=== PATIENT | male | born 1950 | race Caucasian/White ===

== ENCOUNTER → 2017-07-07 | Outpatient (CLI) | payer MEDICARE, BC ==
--- NOTE | 2017-07-12 10:06 | P.ARTDOP ---
Arterial Doppler LOWER EXTREMITY ARTERIAL DOPPLER: DATE OF SERVICE: 07/07/2017 Reason for study: Claudication. Doppler waveforms: Multiphasic bilaterally throughout. Pulse volume recording: Normal configuration. Pressure gradients: None. Ankle-brachial indices: Greater than 1 bilaterally. Toe pressures: 99 on the right, 115 on the left Impression: Normal study.
== END | disposition home or self-care (01) ==
LOC: RADUSWWP 08:53
PROVIDERS: ATTEND Family Medicine
DX: I73.9 Peripheral vascular disease, unspecified (principal)
CPT/HCPCS: 93923

== ENCOUNTER 2018-01-24 19:41 | Emergency (ER) | payer MEDICARE, BC ==
[2018-01-24 19:47] VITALS: PULSE 98; RESP 18; TEMP 99.4
[2018-01-24 20:16] VITALS: BP 171/85
[2018-01-24 20:39] LABS: Basophils # (A) 0.1 k/uL (0-0.2); Basophils % (A) 1 %; Eosinophils # (A) 0.3 k/uL (0-0.7); Eosinophils % (A) 4 %; HCT 41.5 % (39.0-53.0); HGB 13.9 gm/dL (13.0-17.5); Lymphocytes # (A) 1.3 k/uL (1.0-4.8); Lymphocytes % (A) 16 %; MCH 29.5 pg (25.0-35.0); MCHC 33.6 g/dL (31.0-37.0); MCV 87.8 fL (80.0-100.0); Mean Platelet Volume 6.4; Monocytes # (A) 0.5 k/uL (0-1.0); Monocytes % (A) 6 %; Neutrophils % (A) 72 %; Platelet Count 274 k/uL (150-450); RBC 4.72 m/uL (4.30-5.90); RDW 13.8 % (11.5-15.5); WBC 8.3 k/uL (3.8-10.6)
[2018-01-24 20:50] LABS: ALT 45 U/L (21-72); AST 35 U/L (17-59); Albumin 4.1 g/dL (3.5-5.0); Alkaline Phosphatase 88 U/L (38-126); Anion Gap 10 mmol/L; Blood Urea Nitrogen 26 mg/dL (9-20); Calcium 9.6 mg/dL (8.4-10.2); Carbon Dioxide 28 mmol/L (22-30); Chloride 105 mmol/L (98-107); Glucose 163 mg/dL (74-99); Magnesium 2.2 mg/dL (1.6-2.3); Potassium 4.3 mmol/L (3.5-5.1); Sodium 143 mmol/L (137-145); Total Bilirubin 0.6 mg/dL (0.2-1.3); Total Protein 6.8 g/dL (6.3-8.2)
--- NOTE | 2018-01-24 20:55 | ED ---
General Adult HPI - General Chief complaint: Anxiety Stated complaint: tense/not feeling well Time Seen by Provider: 01/24/18 20:12 Source: patient Mode of arrival: ambulatory Limitations: no limitations - History of Present Illness Initial comments: 67-year-old male patient presents to the emergency department today for complaints of feeling jittery. Patient states that around 6 PM this evening he started having waves of jitteriness go through his body. States it happened over and over and made him anxious. Patient states he has never experienced anything like this before and thought he should get checked out. Patient denies any chest pain, shortness of breath, nausea, vomiting, headache, dizziness, or weakness with this. Patient is treated for hypertension and has been known to have elevated blood sugars. She denies starting any new medications, foods, or diet plans. He denies any unusual activities today. He denies any pain anywhere at this point. Patient states he is starting to feel better. Patient denies any recent rash, fever, chills, abdominal pain, diarrhea , constipation, back pain, numbness, tingling, hematuria, dysuria, urinary urgency, urinary frequency, headache, visual changes, or any other complaints. - Related Data Home Medications Medication Instructions Recorded Confirmed Aspirin EC [Ecotrin Low Dose] 81 mg PO DAILY 01/24/18 01/24/18 Atenolol [Tenormin] 25 mg PO DAILY 01/24/18 01/24/18 Lisinopril-Hctz 10-12.5 mg 1 tab PO DAILY 01/24/18 01/24/18 [Zestoretic 10-12.5] Striction Bp 2 tab PO DAILY 01/24/18 01/24/18 Vitamin D3 24603ue 10,000 unit PO DAILY 01/24/18 01/24/18 Allergies Allergy/AdvReac Type Severity Reaction Status Date / Time No Known Allergies Allergy Verified 01/24/18 20:10 Review of Systems ROS Statement: Those systems with pertinent positive or pertinent negative responses have been documented in the HPI. ROS Other: All systems not noted in ROS Statement are negative. Past Medical History Past Medical History: Hypertension History of Any Multi-Drug Resistant Organisms: None Reported Past Surgical History: Hernia Repair Past Psychological History: No Psychological Hx Reported Smoking Status: Current some day smoker Past Alcohol Use History: Occasional Past Drug Use History: None Reported General Exam Limitations: no limitations General appearance: alert, in no apparent distress, other (This is a well- developed, well-nourished adult male patient in no acute distress. Vital signs upon presentation are temperature 99.4F, pulse 98, respirations 18, blood pressure 214/93, pulse ox 96% on room air.) Eye exam: Present: normal appearance, PERRL, EOMI. Absent: scleral icterus, conjunctival injection, periorbital swelling ENT exam: Present: normal exam, normal oropharynx, mucous membranes moist Respiratory exam: Present: normal lung sounds bilaterally. Absent: respiratory distress, wheezes, rales, rhonchi, stridor Cardiovascular Exam: Present: regular rate, normal rhythm, normal heart sounds. Absent: systolic murmur, diastolic murmur, rubs, gallop, clicks GI/Abdominal exam: Present: soft, normal bowel sounds. Absent: distended, tenderness, guarding, rebound, rigid Extremities exam: Present: full ROM, normal capillary refill, other (Ecchymosis noted over the dorsal aspect of the left foot. There is mild generalized left leg swelling, no pitting edema. No calf tenderness, erythema, or pain.). Absent: normal inspection, tenderness, pedal edema, joint swelling, calf tenderness Neurological exam: Present: alert, oriented X3, CN II-XII intact Psychiatric exam: Present: normal affect, normal mood Skin exam: Present: warm, dry, intact, normal color. Absent: rash Course Vital Signs 01/24/18 01/24/18 19:44 20:14 Temperature 99.4 F Pulse Rate 98 Respiratory 18 Rate Blood Pressure 214/93 171/85 O2 Sat by Pulse 96 Oximetry Medical Decision Making - Medical Decision Making The patient presents to the emergency department today for evaluation of jitteriness throughout his body. Physical examination was unremarkable. We did perform basic labs which were unremarkable other than elevated blood glucose. Patient is aware of this and is being managed by his doctor. EKG showed normal sinus rhythm. Patient is feeling better at this time. Blood pressure is improved. We will discharge home to follow-up with his primary care physician. He is instructed to return here immediately for any new, worsening, or concerning symptoms. He verbalizes understanding and agrees with this plan. - Lab Data Result diagrams: 01/24/18 20:29 01/24/18 20:29 Lab Results 01/24/18 01/24/18 01/24/18 Range/Units 20:29 20:29 20:29 WBC 8.3 (3.8-10.6) k/uL RBC 4.72 (4.30-5.90) m/uL Hgb 13.9 (13.0-17.5) gm/dL Hct 41.5 (39.0-53.0) % MCV 87.8 (80.0-100.0) fL MCH 29.5 (25.0-35.0) pg MCHC 33.6 (31.0-37.0) g/dL RDW 13.8 (11.5-15.5) % Plt Count 274 (150-450) k/uL Neutrophils % 72 % Lymphocytes % 16 % Monocytes % 6 % Eosinophils % 4 % Basophils % 1 % Neutrophils # 6.0 (1.3-7.7) k/uL Lymphocytes # 1.3 (1.0-4.8) k/uL Monocytes # 0.5 (0-1.0) k/uL Eosinophils # 0.3 (0-0.7) k/uL Basophils # 0.1 (0-0.2) k/uL D-Dimer 0.40 (<0.60) mg/L FEU Sodium 143 (137-145) mmol/L Potassium 4.3 (3.5-5.1) mmol/L Chloride 105 (98-107) mmol/L Carbon Dioxide 28 (22-30) mmol/L Anion Gap 10 mmol/L BUN 26 H (9-20) mg/dL Creatinine 1.00 (0.66-1.25) mg/dL Est GFR (CKD-EPI)AfAm >90 (>60 ml/min/1.73 sqM) Est GFR (CKD-EPI)NonAf 79 (>60 ml/min/1.73 sqM) Glucose 163 H (74-99) mg/dL Calcium 9.6 (8.4-10.2) mg/dL Magnesium 2.2 (1.6-2.3) mg/dL Total Bilirubin 0.6 (0.2-1.3) mg/dL AST 35 (17-59) U/L ALT 45 (21-72) U/L Alkaline Phosphatase 88 (38-126) U/L Total Protein 6.8 (6.3-8.2) g/dL Albumin 4.1 (3.5-5.0) g/dL - EKG Data -: EKG Interpreted by Me EKG Comments: EKG obtained at 2038 shows normal sinus rhythm with a ventricular rate of 85, CO interval 150, QRS duration 86, QT 362, QTc 4:30. No evidence of ST elevation or depression. No evidence of ectopy. Disposition Clinical Impression: Feeling jittery Disposition: HOME SELF-CARE Condition: Good Instructions: Anxiety (ED) Additional Instructions: Follow-up with her primary care physician for recheck in 1-2 days. Return here immediately for any new, worsening, or concerning symptoms. Referrals: Humble Katz MD [Primary Care Provider] - 1-2 days Time of Disposition: 21:22
== END 2018-01-24 21:41 | disposition home or self-care (01) ==
LOC: EC 19:41
DX: R45.0 Nervousness (principal); I10 Essential (primary) hypertension; F17.200 Nicotine dependence, unspecified, uncomplicated; Z79.899 Other long term (current) drug therapy
CPT/HCPCS: 36415; 80053; 83735; 85025; 85379; 93005; 99283

== ENCOUNTER 2021-07-28 06:24 | Day surgery (SDC) | payer BC, MEDICARE ==
[2021-07-26 12:25] VITALS: BMI 34.2
[~2021-07-28 06:24] MED LIST: LACTATED RINGERS 1,000 ML IV SCH
[2021-07-28 06:59] VITALS: RESP 16; TEMP 96.8
[2021-07-28] MEDS ORDERED: PROPOFOL 10 MG/ML 20 ML VIAL IV ONE (07:07)
[2021-07-28 07:09] LABS: Glucose,Whole Blood 128 mg/dL (75-99)
--- NOTE | 2021-07-28 07:26 | P.PCN ---
Date of Procedure: 07/28/21 Procedure(s) Performed: BRIEF HISTORY: Patient is a 71-year-old pleasant male scheduled for an elective colonoscopy as a part of screening for colorectal neoplasia. PROCEDURE PERFORMED: Colonoscopy snare polypectomy. PREOPERATIVE DIAGNOSIS: Screening for colon cancer. IV sedation per Anesthesia. PROCEDURE: After informed consent was obtained, the patient, was brought into the endoscopy unit. IV sedation was administered by Anesthesia under continuous monitoring. Digital rectal examination was normal. Initially the Olympus CF-160 flexible video colonoscope was then inserted in the rectum, gradually advanced into the cecum without any difficulty. Careful examination was performed as the scope was gradually being withdrawn. Ileocecal valve and the appendiceal orifice were visualized and appeared normal. Prep was excellent. Mucosa of the cecum, ascending colon, transverse colon, descending colon, appeared normal. In the sigmoid: There were 2 polyps measuring 3 mm and 5 mm adjacent each other that were removed by snare polypectomy. Rest of the sigmoid colon, and rectum appeared normal. Retroflexion was performed in the rectum and a 2 internal seen. The patient tolerated the procedure well. IMPRESSION: 3 mm and 5 mm sigmoid polyp status post polypectomy Grade 2 internal hemorrhoids RECOMMENDATIONS: Findings of this examination were discussed with the patient as well as his family. He was advised to follow with the biopsy results. If the biopsy biopsy reveals adenoma he can have a repeat colonoscopy.
[2021-07-28 07:40] VITALS: BP 126/73; PULSE 70
== END 2021-07-28 08:17 | disposition home or self-care (01) ==
LOC: ORWHC2ENDO 06:24
PROVIDERS: ATTEND Internal Medicine Gastroenterology
DX: Z12.11 Encounter for screening for malignant neoplasm of colon (principal); D12.5 Benign neoplasm of sigmoid colon; K64.1 Second degree hemorrhoids; I10 Essential (primary) hypertension; E11.9 Type 2 diabetes mellitus without complications; Z79.84 Long term (current) use of oral hypoglycemic drugs; Z79.82 Long term (current) use of aspirin; Z79.899 Other long term (current) drug therapy
CPT/HCPCS: 45385; 88305; J2704

== ENCOUNTER → 2022-10-04 | Outpatient (CLI) | payer MEDICARE ==
--- NOTE | 2022-10-04 17:29 | US ---
EXAMINATION TYPE: US abdomen complete DATE OF EXAM: 10/04/2022 COMPARISON: NONE CLINICAL HISTORY: Z13.6 SCREENING FOR CARDIOVASCULAR DISEASE. AAA exam limitations due to body habitu s. TECHNIQUE: Multiple sonographic images of the abdomen are obtained. FINDINGS: EXAM MEASUREMENTS: Liver Length: 16 cm Gallbladder Wall: .3 cm CBD: .6 cm Spleen: 10.9 cm Right Kidney: 11.7 x 5.3 x 4.8 cm Left Kidney: 11.0 x 5.5 x 5.6 cm COORDINATOR OF EVALUATION NOTES: Pancreas: Obscured by bowel gas Liver: Increased attenuation Gallbladder: No stones seen Evidence for sonographic Gaines's sign: No CBD: wnl Spleen: wnl Right Kidney: wnl Left Kidney: wnl Upper IVC: wnl Abd Aorta: wnl IMPRESSION: 1. No acute ultrasound abdomen abnormality
== END | disposition home or self-care (01) ==
LOC: RADUSWWP 07:43
PROVIDERS: ATTEND Family Medicine
DX: Z13.6 Encounter for screening for cardiovascular disorders (principal)
CPT/HCPCS: 76700

== ENCOUNTER → 2024-04-15 | Outpatient (CLI) | payer MEDICARE ==
--- NOTE | 2024-04-15 10:59 | US ---
EXAMINATION TYPE: US liver DATE OF EXAM: 04/15/2024 COMPARISON: EXAMINATION TYPE: US liver DATE OF EXAM: 04/15/2024 COMPARISON: Abdominal ultrasound 10/04/2022 CLINICAL INDICATION: Male, 73 years old with history of R17 UNSPECIFIED JAUNDICE; Jaundice exam limit ed due to body habitus and bowel gas TECHNIQUE: Multiple sonographic images of the right upper quadrant are obtained. FINDINGS: EXAM MEASUREMENTS: Liver Length: 18.2 cm Gallbladder Wall: .3 cm CBD: .4 cm Right Kidney: 11.2 x 5.0 x 5.7 cm DIRECTOR OF INFORMATICS NOTES: Pancreas: Obscured by bowel gas Liver: Increased attenuation Gallbladder: No stones seen Evidence for sonographic Gaines's sign: No CBD: wnl Right Kidney: No hydronephrosis or masses seen Pancreas is obscured by overlying bowel gas. The liver demonstrates a diffusely increased echotexture . This appearance limits evaluation for intrahepatic masses. No gross evidence of mass. No intrahepat ic biliary duct dilatation. Gallbladder appears unremarkable without stones or wall thickening. Negat lior sonographic Gaines's sign. Common bile duct is within normal limits. Right kidney appears unremar kable without evidence of hydronephrosis or stones. No mass identified. IMPRESSION: Marked hepatic steatosis otherwise no other ultrasound evidence for abnormality.
== END | disposition home or self-care (01) ==
LOC: RADUSWWP 07:32
PROVIDERS: ATTEND Family Medicine
DX: K76.0 Fatty (change of) liver, not elsewhere classified (principal)
CPT/HCPCS: 76705

== ENCOUNTER → 2024-05-06 | Outpatient (CLI) | payer MEDICARE ==
[2024-05-06 11:22] LABS: Basophils # (A) 0.1 k/uL (0-0.2); Basophils % (A) 1 %; Eosinophils # (A) 0.2 k/uL (0-0.7); Eosinophils % (A) 4 %; HCT 49.2 % (39.0-53.0); HGB 15.4 gm/dL (13.0-17.5); Lymphocytes # (A) 1.6 k/uL (1.0-4.8); Lymphocytes % (A) 26 %; MCH 29.4 pg (25.0-35.0); MCHC 31.4 g/dL (31.0-37.0); MCV 93.7 fL (80.0-100.0); Monocytes # (A) 0.5 k/uL (0-1.0); Monocytes % (A) 7 %; Neutrophils # (A) 3.8 k/uL (1.3-7.7); Neutrophils % (A) 60 %; Platelet Count 271 k/uL (150-450); RBC 5.25 m/uL (4.30-5.90); RDW 13.9 % (11.5-15.5); WBC 6.3 k/uL (3.8-10.6)
[2024-05-06 15:42] LABS: Hepatitis B Surface Antigen Nonreactive (Nonreactive); Hepatitis C IgG Antibody Nonreactive (Nonreactive)
[2024-05-06 15:54] LABS: % Iron Saturation 25.21 (15.00-50.00); ALT 25 U/L (10-49); AST 29 U/L (14-35); Albumin 4.6 g/dL (3.8-4.9); Alkaline Phosphatase 84 U/L (41-126); BUN/Creat Ratio 23.89 Ratio (12.00-20.00); Bilirubin, Conjugated 0.26 mg/dL (0.20-0.40); Bilirubin,Unconjugated 0.94 mg/dL (0.20-1.00); Blood Urea Nitrogen 21.5 mg/dL (9.0-27.0); Calcium 9.7 mg/dL (8.7-10.3); Carbon Dioxide 21.5 mmol/L (21.6-31.8); Chloride 102 mmol/L (96-109); Ferritin 78.1 ng/mL (22.0-322.0); Globulin 2.3 g/dL (1.6-3.3); Glucose 125 mg/dL (70-110); Iron 92 UG/DL (65-175); Potassium 4.4 mmol/L (3.5-5.5); Sodium 139 mmol/L (135-145); Total Bilirubin 1.2 mg/dL (0.3-1.2); Total Iron Binding Capacity 365 UG/DL (228-460); Total Protein 6.9 g/dL (6.2-8.2)
[2024-05-07 09:17] LABS: Protein, Total 6.8 g/dL (6.2-8.2)
[2024-05-07 13:29] LABS: Smooth Muscle Antibody 9 UNITS (<20)
== END | disposition home or self-care (01) ==
LOC: LABWHC1 10:04
PROVIDERS: ATTEND Internal Medicine Gastroenterology
DX: K76.0 Fatty (change of) liver, not elsewhere classified (principal)
CPT/HCPCS: 36415; 80053; 81596; 82103; 82248; 82390; 82728; 83516; 83540; 83550; 84165; 85025; 86038; 86803; 87340

== ENCOUNTER → 2025-05-01 | Outpatient (CLI) | payer MEDICARE ==
[2025-05-01 15:05] LABS: Basophils # (A) 0.06 X 10*3/uL (0.00-0.10); Basophils % (A) 0.8 %; Eosinophils # (A) 0.25 X 10*3/uL (0.04-0.35); Eosinophils % (A) 3.2 %; HCT 48.3 % (39.6-50.0); HGB 15.5 g/dL (13.0-17.0); Lymphocytes # (A) 1.64 X 10*3/uL (0.90-5.00); Lymphocytes % (A) 21.1 %; MCH 28.9 pg (27.0-32.0); MCHC 32.1 g/dL (32.0-37.0); MCV 90.1 FL (80.0-97.0); Mean Platelet Volume 9.1 FL (9.5-12.2); Monocytes # (A) 0.71 X 10*3/uL (0.20-1.00); Monocytes % (A) 9.1 %; NRBC Per 100 WBC 0 X 10*3/uL (0.00-0.01); Neutrophils # (A) 5.11 X 10*3/uL (1.80-7.70); Neutrophils % (A) 65.7 %; Platelet Count 254 X 10*3/uL (140-440); RBC 5.36 X 10*6/uL (4.40-5.60); WBC 7.78 X 10*3/uL (4.50-10.00)
[2025-05-01 15:28] LABS: ALT 24 U/L (10-49); AST 30 U/L (14-35); Albumin 4.4 g/dL (3.8-4.9); Alkaline Phosphatase 93 U/L (41-126); Blood Urea Nitrogen 20.3 mg/dL (9.0-27.0); Calcium 9.2 mg/dL (8.7-10.3); Chloride 104 mmol/L (96-109); Globulin 2.1 g/dL (1.6-3.3); Glucose 131 mg/dL (70-110); Potassium 4.4 mmol/L (3.5-5.5); Sodium 139 mmol/L (135-145); Total Bilirubin 1.2 mg/dL (0.3-1.2); Total Protein 6.5 g/dL (6.2-8.2)
== END | disposition home or self-care (01) ==
LOC: LABWHC1 08:10
PROVIDERS: ATTEND Nurse Practitioner Family
DX: R17 Unspecified jaundice (principal)
CPT/HCPCS: 36415; 80053; 85025